=== PATIENT | male | born 1975 | race Caucasian/White ===

== ENCOUNTER 2020-12-11 11:11 | Outpatient (CLI) | payer BC, SELFPAY ==
[2020-12-11 12:00] LABS: Basophils Percent Auto 0.5 % (0.2-1.2); Eosinophils Absolute Auto 0.1 K/mm3 (0-0.3); Eosinophils Percent Auto 1.8 % (0-4.4); Hematocrit 44.4 % (42.0-52.0); Hemoglobin 15.5 g/dL (14.0-18.0); Immature Granulocyte Absolute 0.01 K/mm3 (0.00-0.031); Immature Granulocyte Percent A 0.2 % (0-0.5); Lymphocytes Absolute Auto 1.63 K/mm3 (0.9-3.2); Mean Corpuscular HGB Conc 34.9 g/dl (32-36); Mean Corpuscular Volume 94.5 fl (80-100); Mean Platelet Volume 11.2 fl (7.4-10.4); Monocytes Absolute Auto 0.3 K/mm3 (0.1-0.6); Monocytes Percent Auto 7.7 % (2.6-8.5); Neutrophils Absolute Auto 2.3 K/mm3 (1.3-6.7); Neutrophils Percent Auto 52.8 % (45.5-73.1); Platelet Count Result 143 k/mm3 (150-375); Red Cell Distribution Width 12.5 % (11.5-14.5); White Blood Count 4.4 K/mm3 (4.5-10.0)
[2020-12-11 12:11] LABS: Alanine Aminotransferase 28 U/L (4-50); Alkaline Phosphatase 53 U/L (38-126); Anion Gap 8 mmol/L (8-16); Aspartate Amino Transferase 24 U/L (17-59); Bilirubin,Total 1.9 mg/dL (0.2-1.3); Blood Urea Nitrogen 13 mg/dL (9-20); Calcium 9.5 mg/dL (8.4-10.2); Carbon Dioxide 29 mmol/L (22-30); Chloride 103 mmol/L (98-107); Cholesterol 240 mg/dL (0-200); Estimated Glomerular Filt Rate > 60; Glucose 96 mg/dL (65-110); HDL Direct 75 mg/dL; Potassium 4.4 mmol/L (3.4-5.0); Sodium 140 mmol/L (137-145); Triglycerides 59 mg/dL (<150)
[2020-12-11 12:22] LABS: LDL Cholesterol Direct 149 mg/dL
== END 2020-12-11 11:12 | disposition home or self-care (01) ==
LOC: ANHLAB 11:13
PROVIDERS: PCP Internal Medicine; Visit Provider Clinical Nurse Specialist
DX: Z13.228 Encounter for screening for other metabolic disorders (principal); Z13.220 Encounter for screening for lipoid disorders
CPT/HCPCS: 36415; 80053; 80061; 85025

== ENCOUNTER 2021-12-24 08:21 | Outpatient (CLI) | payer BC, SELFPAY ==
[2021-12-24 20:15] LABS: Alanine Aminotransferase 42 U/L (6-50); Albumin Level 4.7 g/dL (3.5-5.1); Alkaline Phosphatase 53 U/L (38-126); Anion Gap 14 mmol/L (8-16); Aspartate Amino Transferase 30 U/L (17-59); Blood Urea Nitrogen 14 mg/dL (9-20); Calcium 9.2 mg/dL (8.4-10.2); Carbon Dioxide 24 mmol/L (22-30); Chloride 103 mmol/L (98-107); Cholesterol 225 mg/dL (0-200); Estimated Glomerular Filt Rate > 60; Glucose 87 mg/dL (65-110); HDL Direct 50 mg/dL; Sodium 141 mmol/L (137-145); Triglycerides 97 mg/dL (<150)
[2021-12-24 20:23] LABS: Basophils Percent Auto 0.4 % (0.2-1.2); Eosinophils Absolute Auto 0.1 K/mm3 (0-0.3); Eosinophils Percent Auto 2.1 % (0-4.4); Hematocrit 47.2 % (42.0-52.0); Hemoglobin 15.9 g/dL (14.0-18.0); Immature Granulocyte Absolute 0.01 K/mm3 (0.00-0.031); Immature Granulocyte Percent A 0.2 % (0-0.5); Lymphocytes Absolute Auto 1.59 K/mm3 (0.9-3.2); Lymphocytes Percent Auto 33.1 % (18.3-44.2); Mean Corpuscular HGB Conc 33.7 g/dl (32-36); Mean Corpuscular Hemoglobin 32.1 pg (26-34); Mean Corpuscular Volume 95.2 fl (80-100); Mean Platelet Volume 11.9 fl (7.4-10.4); Monocytes Absolute Auto 0.5 K/mm3 (0.1-0.6); Monocytes Percent Auto 9.6 % (2.6-8.5); Neutrophils Absolute Auto 2.6 K/mm3 (1.3-6.7); Neutrophils Percent Auto 54.6 % (45.5-73.1); Platelet Count Result 161 k/mm3 (150-375); Red Blood Count 4.96 M/mm3 (4.6-6.20); Red Cell Distribution Width 12.8 % (11.5-14.5); White Blood Count 4.8 K/mm3 (4.5-10.0)
[2021-12-24 20:27] LABS: LDL Cholesterol Direct 146 mg/dL
[2021-12-25 10:22] LABS: Bilirubin Indirect 1.7 mg/dL (0-1.1)
== END 2021-12-24 08:22 | disposition home or self-care (01) ==
LOC: ANHGOSHLAB 08:22
PROVIDERS: Nurse Practitioner; PCP Internal Medicine; Visit Provider Internal Medicine
DX: F41.9 Anxiety disorder, unspecified (principal); R07.89 Other chest pain; Z13.220 Encounter for screening for lipoid disorders; D69.6 Thrombocytopenia, unspecified; R17 Unspecified jaundice
CPT/HCPCS: 36415; 80053; 80061; 82248; 84443; 85025

== ENCOUNTER → 2021-12-24 08:30 | Outpatient (CLI) | payer BC, SELFPAY ==
--- NOTE | ~2021-12-24 | XR_ITS ---
EXAMINATION: XR chest 2V DATE: 12/24/2021 08:39 INDICATION: Chest pain, unspecified TECHNIQUE: PA and lateral views of the chest are obtained. COMPARISON: None available FINDINGS: The lungs are free of acute opacities. No pleural effusion or pneumothorax. The cardiomedia stinal silhouette is normal. There is mild thoracic spondylosis. IMPRESSION: 1. No acute cardiopulmonary abnormality. Reviewed, dictated and finalized at location F.
== END ==
PROVIDERS: PCP Internal Medicine; Visit Provider Internal Medicine
DX: R07.89 Other chest pain (principal); M47.814 Spondylosis without myelopathy or radiculopathy, thoracic region
CPT/HCPCS: 71046

== ENCOUNTER 2022-03-26 01:03 | Day surgery (SDC) | payer BC, SELFPAY ==
[2022-03-12 15:52] VITALS: BMI 26.5
--- NOTE | 2022-03-25 13:49 | P.PNAN_ITS ---
Anes - Initial Pre Proc Eval Procedure: Operation Date: 03/26/22 09:30 Proposed Procedures p Colonoscopy - Gregg Ramon MD Date/Time: 03/25/22 13:49 Surgeon: Gregg Ramon MD Pre Op Diagnosis: positive cologuard Patient Data Age: 46 Gender: M Height: 1.78 m Weight: 84 kg Allergies Allergy/AdvReac Type Severity Reaction Status Date / Time morphine Allergy Mild ITCHING Verified 03/26/22 08:19 Home Medications Medication Instructions Recorded Confirmed Type loratadine 10 mg tablet (Claritin) 10 mg PO DAILY PRN Allergy Symptoms 12/11/20 03/26/22 History Patient hx anesthesia problems: none Family hx anesthesia problems: none Results Review: All pre-operative results and documents have been reviewed as part of the pre- operative evaluation. [facility] Past Medical History Medical History (Updated 01/26/22 @ 09:28 by Wilner Lemus DO) [place] syndrome Kidney stone No pertinent family history Surgical History Surgical History (Updated 03/25/22 @ 13:49 by Dominick Arreola DO) History of adenoidectomy History of orthopedic surgery right elbow Hx of appendectomy Family History Family History Mother Melanoma Grandparent Breast cancer Heart problem Social History Social History Smoking status: Never smoker Alcohol intake: current Drinks per week: 12 Alcohol use details: socially Substance use type: does not use Living arrangements: with family Spiritual care concerns: No Anes - Eval Final PreProcedure Day of Procedure 03/25/22 13:49 Patient weight: overweight Heart: regular rate and rhythm Lungs: clear to auscultation Airway: Mallampati scale class II Neurological: alert and oriented Last oral intake: >/= 8 hours ASA classification: III Emergent: no Anesthetic plan: proceed Anesthesia type and monitoring: general GIVS and standard monitoring Results Review: All pre-operative results and documents have been reviewed as part of the pre- operative evaluation. Informed Consent: The patient's anesthetic plan and its attendant risks and benefits were discussed with the patient/family/POA. Questions were solicited and answers provided to the satisfaction of the patient/family/POA.
--- NOTE | 2022-03-25 13:56 | P.HP_ITS ---
History of Present Illness History of Present Illness Consent: Risks, benefits, and alternatives have been discussed and questions answered. Patient agrees to proceed with procedure. Chief complaint: positive cologuard Narrative: Andrae Nava is a 46 year old male Referred for colon cancer screening. He had performed a Cologuard test which was positive Review of Systems Review of Systems: All systems reviewed & are unremarkable except as noted in HPI and below PMFSH Past Medical History Medical History [place] syndrome Kidney stone No pertinent family history Surgical History Surgical History History of adenoidectomy History of orthopedic surgery right elbow Hx of appendectomy Family History Family History Mother Melanoma Grandparent Breast cancer Heart problem Social History Social History Smoking status: Never smoker Alcohol intake: current Drinks per week: 12 Alcohol use details: socially Substance use type: does not use Living arrangements: with family Spiritual care concerns: No Meds Home Medications and Allergies Home Medications Medication Instructions Recorded Confirmed Type loratadine 10 mg tablet (Claritin) 10 mg PO DAILY PRN Allergy Symptoms 12/11/20 03/26/22 History Allergies Allergy/AdvReac Type Severity Reaction Status Date / Time morphine Allergy Mild ITCHING Verified 03/26/22 08:19 Exam Const: General: alert Orientation/consciousness: patient oriented x3 Resp: Auscultation: clear to auscultation bilaterally Cardio: Rhythm: regular rhythm GI: GI Palp: Yes Soft to palpation and No Tenderness to palpation present (GI) Neuro: General: patient oriented x3 Assessment and Plan Assessment and plan (1) Screening for colon cancer: Code(s): Z12.11 - Encounter for screening for malignant neoplasm of colon Status: Acute Assessment and Plan: Colonoscopy with possible biopsy or polypectomy or cautery or injection of substances.
[2022-03-26 08:20] VITALS: BP 128/91; PULSE 84; RESP 16; TEMP 36.2; O2SAT 99
[2022-03-26] MEDS: LACTATED RINGERS 1,000 ML 150 ML IV CONT (08:30)
[2022-03-26 09:45] VITALS: BP 104/75; PULSE 86; RESP 23; O2SAT 97
[2022-03-26 09:55] VITALS: BP 90/57; PULSE 91; RESP 18; O2SAT 100
[2022-03-26 10:05] VITALS: BP 100/58; PULSE 85; RESP 20; O2SAT 100
== END 2022-03-26 10:15 | disposition home or self-care (01) ==
PROVIDERS: PCP Internal Medicine; Visit Provider Internal Medicine Gastroenterology
PROC: 0DJD8ZZ Inspection of Lower Intestinal Tract, Via Natural or Artificial Opening Endoscopic (ICD-10-PCS; CPT 45378; principal; 2022-03-26 09:30)
DX: R19.5 Other fecal abnormalities (principal); K57.30 Diverticulosis of large intestine without perforation or abscess without bleeding; E80.4 Gilbert syndrome
CPT/HCPCS: 45378; J2704; J7120

== ENCOUNTER 2023-04-08 08:56 | Outpatient (CLI) | payer BC, SELFPAY ==
--- NOTE | ~2023-04-08 | US_ITS ---
Limited Abdominal Sonogram: Real-time sonographic imaging of the right upper quadrant was performed. Clinical History: Abnormal serum enzyme levels Findings: The liver appears echogenic, with no evidence of mass lesion or bile duct dilatation. Main portal vein demonstrates normal direction of flow. The gallbladder is well distended, and appears no rmal with no evidence of gallstone or wall thickening. The common bile duct measures 2 mm. The visua lized pancreas, aorta, and IVC are unremarkable. Impression: Diffuse fatty infiltration of liver. Reviewed, dictated and finalized at location M. CTOR OF CRITICAL CARE Impression: Diffuse fatty infiltration of liver.
== END 2023-04-08 08:57 | disposition home or self-care (01) ==
PROVIDERS: PCP Internal Medicine; Visit Provider Internal Medicine
DX: R74.8 Abnormal levels of other serum enzymes (principal); K76.0 Fatty (change of) liver, not elsewhere classified
CPT/HCPCS: 76705

== ENCOUNTER 2025-01-24 08:48 | Outpatient (CLI) | payer BC, SELFPAY ==
--- OUTSIDE RECORDS SUMMARY | 2025-01-24 09:09 | XMS_ITS | Clinical Summary ---
Author Organization [facility] Address [address] [place] [address] Care Team Providers Care Senior Oracle Developer Name Role Phone Unavailable Primary Care Provider Unavailabl e Source Comments [facility],non-owned Affiliates and Associated Physician Practices is amultiple site organization consisting of ambulatory clinics and hospital sitesin [place], [place], [place] and [place]. This disclosure is being madepursuant to the Care Everywhere program and may not contain all information available regarding this patient. Last updated 17.[facility] Allergies Active Allergy Reactions Criticality Noted Date Comments Morphine Itching 06/07/2016 Medications * Be aware that medications may not be up to date on this document. Alwaysverify current medications with the patient. 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 Gender Identity Not on file Sexual Orientation Not on file Last Filed Vital Signs Vital Sign Reading Time Taken Comments Blood Pressure 122/94 06/07/2016 12:24 PM CDT Pulse 118 06/07/2016 12:24 PM CDT Temperature 37.1 C (98.8 F) 06/07/2016 12:24 PM CDT Respiratory Rate 16 06/07/2016 12:24 PM CDT Oxygen Saturation 99% 06/07/2016 12:24 PM CDT Inhaled Oxygen Concentration - - Weight 81.6 kg (180 lb) 06/07/2016 12:24 PM CDT Height 177.8 cm (5' 10) 06/07/2016 12:24 PM CDT Body Mass Index 25.83 06/07/2016 12:24 PM CDT Plan of Treatment Health Maintenance Due Date Last Done Comments LUISA (AGES 45-75) - COL ON CA SCREENING 1975 COLON MONITORING 1975 COLONOSCOPY - COLON CA SCREENING 1974 CT COLONOGRAPHY - COLON CA SCREENING 1975 Colorectal Cancer Screening 1975 FIT - COLON CA SCREENING 1974 FLEX SIG - COLON CA SCREENING 1974 LIPID TESTING 1974 HIV SCREENING 1989 HEPATITIS C SCREENING 10/19/1992 DTAP/TDAP/TD VACCINES (1 - Tdap) 1993 HEPATITIS B VACCINE (1 of 3 - 19+ 3-dose series) 1993 DEPRESSION SCREENING 03/14/2024 PNEUMOCOCCAL VACCINE 50+ (1 of 1 - PCV) 2024 ZOSTER VACCINE (1 of 2) 2024 COVID-19 VACCINE (1 - 2023-2 5 season) 2024 INFLUENZA VACCINE (#1) 2024 HIB VACCINE Aged Out No longer eligi ble based on patient's age to complete this topic HPV VACCINE Aged Out No longer eligi ble based on patient's age to complete this topic MENINGOCOCCAL (Group B) VACC INE SHARED DECISION-MAKING Aged Out No longer eligibl e based on patient's age to complete this topic MENINGOCOCCAL GROUPS A/C/Y/W VACCINE Aged Out No longer eligible b ased on patient's age to complete this topic Insurance ISABEL
[2025-01-30 21:55] VITALS: BMI 27.9
--- NOTE | 2025-01-30 21:55 | P.SLEEP_ITS ---
Sleep Study - Home Unattended Date of Study: 01/24/25 Ordering Provider: Malou Chadwick APRN Interpreting Provider: Tiana King, DO Home Sleep Study Type: Watch PAT Height: 1.78 m Weight: 88.451 kg Body Mass Index: 27.9 Neck Circumference (inches): 15.25 Calera: 9 Reason for Sleep Study Nocturnal gasping, daytime hypersomnia, decreased total sleep time Sleep History The patient is a 49-year-old male that had a sleep study ordered by his primary care for evaluation of sleep apnea. The patient denies awakening from sleep short of breath. He rarely awakens at night with heartburn, belching or cough. He constantly snores but is frequently loud enough that others complain. He denies having Sleep trouble sleeping when he has a cold. He denies waking up gasping for air throughout the night. He frequently has breathing problems at night observed by himself or others. He occasionally sweats excessively at night. He occasionally has heart palpitations or irregular heartbeats during the night. He occasionally falls asleep during the day but never while driving. He denies sleep paralysis, cataplexy and hypnagogic/ hypnopompic hallucinations. He denies having trouble at school or work due to sleepiness. He denies feeling afraid of going to sleep. He rarely has nightmares. He frequently remembers his dreams. He frequently has thoughts racing through his mind. He denies feeling sad or depressed. He frequently has anxiety. He rarely has muscular tension. He occasionally notices parts of his body jerk. He denies kicking during the night. He denies having crawling and aching f eelings in his legs and denies having leg pain during the night. He denies grinding his teeth during sleep and denies awakening with morning jaw pain. He is rarely bothered by pain during the day and never awakened by pain during the night. He rarely wakes up feeling stiff in the morning. Denies waking up with sore or achy muscles. He rarely wakes up with pain in the neck, spine and other joints. He goes to bed between 9-10 p.m. on weekdays and between 10-11 p.m. on weekends. It takes him 5 minutes to fall asleep. He wakes 5 times at a minimum throughout the night for unknown reasons and he can take minutes up to several hours to fall back asleep. He he wakes up between 2-5 a.m. on weekdays and between 3-5 a.m. on the weekends. He typically gets 8 hours of sleep per night. He will stay in bed for 5 minutes after waking up in the morning. He currently lives with his . He denies consuming any caffeinated beverages within 2 hours of bedtime. He denies engaging in physical exercise before bedtime. He will watch television before falling asleep. He denies reading before falling asleep. He denies taking naps in afternoon or the evening. He consumes 2 caffeinated beverages per day. He consumes 3-4 alcoholic beverages per day. He denies tobacco and recreational drug use. [facility] Past Medical History Medical History [place] syndrome No pertinent family history Kidney stone Surgical History Surgical History History of adenoidectomy History of orthopedic surgery right elbow Hx of appendectomy Family History Family History Mother Melanoma Grandparent Breast cancer Heart problem Social History Social History Smoking status: Never smoker Alcohol intake: current Drinks per week: 12 Alcohol use details: socially Substance use type: does not use Living arrangements: with family Occupation/Education: occupation Spiritual care concerns: No Medications Home Medications ?Medication ?Instructions ?Recorded ?Confirmed ?Type loratadine 10 mg tablet (Claritin) 10 mg PO DAILY PRN Allergy Symptoms 12/11/20 01/10/25 History rosuvastatin 10 mg tablet 10 mg PO DAILY #90 tabs 12/1401/10/25 Rx Sleep Procedure The sleep study was completed using GizmoxPAT a technically adequate device with seven channels: peripheral arterial tone, actigraphy, body position, snore, respiratory movement, pulse oximetry, sleep staging, and heart rate. Prior to using the device, the patient received verbal and written instructions for its application and was provided with the help desk phone number for additional telephonic instruction with 24-hour availability of qualified personnel to answer questions. The study was scored using CMS guidelines. Sleep Architecture The total recording time is 9 hrs, 39 min. The total sleep time is 8 hrs, 57 min. Sleep latency is 5 minutes. REM latency is 105 minutes. The patient had 9 episodes of waking. Sleep architecture shows 11.4% deep sleep, 75.0% light sleep, and (as % Total Sleep Time) showed NREM (Light 75.0%; Deep 11.4%), and a 13.7% stage REM. The patient spent 56.0% of total sleep time in the supine position. Sleep efficiency was 92.75. Respiratory Analysis The overall AHI (pAHI 4%:) is 52.7. The overall AHI (pAHI 3%:) is 59.3. The central AHI is 27.3. The AHI was 58.4 in NREM and 64.9 in REM sleep. The AHI was 68.4 in Supine and 47.8 in Non-supine sleep. Percent of Momo Hand respirations is 12.1. Oximetry Data The oxygen desaturation index (YOLETTE 4%:) is 48.0. The mean saturation is 94%, and the lowest saturation is 75%. Time spent with saturation < 88% is 38.2 minutes. Snoring Profile Snoring average intensity is 41 dB. The patient snored above 45 decibels for 24.4 minutes, 4.5% of sleep time. Cardiac Profile The average pulse rate is 72 beats per minutes. The lowest pulse rate is 48 bpm. The highest pulse rate reported is 117 bpm. Atrial fibrillation was not detected. Premature beats occur <0.1 per minute. Assessment and Plan Assessment and Plan (1) YOLETTE (obstructive sleep apnea): Code(s): G47.33 - Obstructive sleep apnea (adult) (pediatric) Status: Acute Assessment and Plan: The patient had an overall AHI of 52.7 with desaturation down to 75%. The patient had a central apnea index of 27.3, which is elevated (normal < 5). This is consistent with severe sleep apnea. The patient had Momo-Hand respirations present 12.2% of total recording time. Due to the severity of the patient's sleep apnea, the elevated central apnea index and presence of ANIMAL CONTROL SPECIALIST, the patient is not a candidate for AutoPAP. I recommend that the patient have a CPAP Titration with the use of a hypnotic to ensure we obtain enough sleep data and find an optimal pressure setting. The patient also needs an echocardiogram to rule out cardiogenic causes of an elevated central apnea index. Data The data obtained during this sleep study is adequate for interpretation. Certification This sleep study has been reviewed by a board certified sleep medicine physician.
== END 2025-01-25 13:12 | disposition home or self-care (01) ==
LOC: ANHCSM 08:53
PROVIDERS: PCP Internal Medicine; Visit Provider Nurse Practitioner
DX: G47.33 Obstructive sleep apnea (adult) (pediatric) (principal)
CPT/HCPCS: 95800

== ENCOUNTER 2025-03-01 07:20 | Outpatient (CLI) | payer BC, SELFPAY ==
--- NOTE | 2025-03-01 | ECHO_ITS ---
Patient Info Name: Andrae Nava Age: 49 years : 1975 Gender: Male Ht: 70 in Wt: 195 lbs BSA: 2.11 m2 HR: 103 bpm BP: 143 / 101 mmHg Heart Rhythm: Sinus Rhythm Technical Quality: Good Exam Date: 03/01/2025 8:01 AM Patient Status: O Admit Date: 03/01/2025 Exam Type: CA echo doppler color flow Complete two-dimensional, color flow and Doppler transthoracic echocardiogram is performed. Medical Billing Supervisor: Marleen Pedroza Attending Provider: Malou Chadwick Summary 1. Complete two-dimensional, color flow and Doppler transthoracic echocardiogram is performed. 2. Left ventricular chamber dimension is normal. 3. Left ventricular systolic function is normal, estimated at 65-70. 4. The left ventricular diastolic function is grade II diastolic dysfunction. 5. E/e' 8 is minimally elevated. 6. Left atrial chamber dimension is mildly enlarged. 7. There is trace mitral valve regurgitation. 8. The prox ascending aorta size is mildly dilated at 4.3 cm. Left Ventricle E/e' 8 is minimally elevated. Left ventricular chamber dimension is normal. Left ventricular systolic function is normal, estimated at 65-70. The left ventricular diastolic function is grade II diastolic dysfunction. Right Ventricle Right ventricular chamber dimension is normal. Right ventricular systolic function is normal and with normal TAPSE 1.8 cm. Left Atria Left atrial chamber dimension is mildly enlarged. Right Atria Right atrial chamber dimension is normal. Aortic Valve The aortic valve is trileaflet. There is no aortic valve stenosis. There is no aortic valve regurgitation. Pulmonic Valve There is no pulmonic regurgitation. Mitral Valve There is no mitral valve stenosis. There is trace mitral valve regurgitation. Tricuspid Valve There is no tricuspid valve regurgitation. Pericardium/Pleural There is no pericardial effusion. Inferior Vena Cava Normal inferior vena cava with >50% collapse upon inspiration consistent with normal right atrial pressure, 5 mmHg. Aorta The aortic root size at the sinus of Valsalva is normal. The prox ascending aorta size is mildly dilated at 4.3 cm. Left Ventricular Outflow Tract Name Value Normal LVOT 2D LVOT Diameter 2.0 cm LVOT Doppler LVOT Peak Velocity 139 cm/s LVOT Peak Gradient 8 mmHg LVOT Mean Gradient 4 mmHg LVOT VTI 22 cm LVOT VTI/AV VTI Ratio 1.0 LVOT Stroke Volume 69 ml LVOT CO 6.4 l/min LVOT CI 3.0 l/min/m2 Pulmonic Valve Name Value Normal RVOT Doppler RVOT Peak Velocity 80 cm/s RVOT Peak Gradient 3 mmHg PV Doppler PV Peak Velocity 91 cm/s PV Peak Gradient 3 mmHg Mitral Valve Name Value Normal MV Diastolic Function MV E Peak Velocity 82 cm/s MV A Peak Velocity 54 cm/s MV E/A 1.5 MV Decel Time (PW) 179 ms MV Annular TDI MV E/e' (Septal) 9.9 MV E/e' (Lateral) 7.1 MV E/e' (Average) 8.5 Tricuspid Valve Name Value Normal Estimated PAP/RSVP RA Pressure 5 mmHg <=5 TV Annular TDI TV Lateral Lesli s' Velocity 11.5 cm/s >=9.5 Aorta Name Value Normal Ascending Aorta Ao Root Diameter (MM) 3.5 cm Ao Root Diam Index (MM) 1.7 cm/m2 Aortic Valve Name Value Normal AV Doppler AV Peak Velocity 152 cm/s AV Peak Gradient 9 mmHg AV Mean Gradient 4 mmHg AV VTI 23 cm AV Area (Cont Eq VTI) 3.0 cm2 >=3.0 AV Area (Cont Eq Hermilo) 2.8 cm2 AV DI (Hermilo) 0.92 AV Regurgitation 2D LVOT Area 3.1 cm2 Ventricles Name Value Normal LV Dimensions 2D/MM IVS Diastolic Thickness (2D) 0.9 cm 0.6-1.0 LVID Diastole (2D) 5.0 cm 4.2-5.8 LVIW Diastolic Thickness (2D) 0.8 cm 0.6-1.0 LVID Systole (2D) 3.4 cm 2.5-4.0 LVIW Systolic Thickness (MM) 1.8 cm LVOT Diameter 2.0 cm LV Mass (2D Cubed) 149.11 g 88.00-224.00 LV Mass Index (2D Cubed) 71 g/m2 49-115 Relative Wall Thickness (2D) 0.33 <=0.42 LV Fractional Shortening/Ejection Fraction 2D/MM LV Fractional Shortening (2D) 32 % 25-43 LV EF (2D Teichholz) 60 % LV Diastolic Volume (4C MOD) 93 ml LV EF (4C MOD) 70 % LV Diastolic Volume (2C MOD) 63 ml LV EF (2C MOD) 77 % LV Diastolic Volume (BP MOD) 80 ml 62-150 LV Diastolic Volume Index (BP MOD) 38 ml/m2 34-74 LV Systolic Volume (BP MOD) 20 ml 21-61 LV Systolic Volume Index (BP MOD) 10 ml/m2 11-31 LV EF (BP MOD) 74 % 52-72 LV Diastolic Length (4C) 8.6 cm LV Systolic Length (4C) 6.9 cm LV Stroke Volume (4C MOD) 65 ml Atria Name Value Normal LA Dimensions LA Dimension (MM) 3.9 cm 3.0-4.0 LA Volume (4C A-L) 64 ml LA Volume (BP A-L) 67 ml RA Dimensions RA Area (4C) 17.1 cm2 <=18.0 Report Signatures
--- OUTSIDE RECORDS SUMMARY | 2025-03-01 07:23 | XMS_ITS | Clinical Summary ---
Author Organization [facility] Address [address] [place] [address] Care Team Providers Care Field Tech Name Role Phone Unavailable Primary Care Provider Unavailabl e Source Comments [facility],non-owned Affiliates and Associated Physician Practices is amultiple site organization consisting of ambulatory clinics and hospital sitesin [place], [place], [place] and [place]. This disclosure is being madepursuant to the Care Everywhere program and may not contain all information available regarding this patient. 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
== END 2025-03-01 07:21 | disposition home or self-care (01) ==
PROVIDERS: PCP Internal Medicine; Visit Provider Nurse Practitioner
DX: I71.40 Abdominal aortic aneurysm, without rupture, unspecified (principal)
CPT/HCPCS: 93306